=== PATIENT | male | born 1960 | race Caucasian/White ===

== ENCOUNTER 2018-12-15 16:19 | Outpatient (CLI) | payer BC ==
--- NOTE | 2018-12-15 18:35 | RAD ---
LEFT ANKLE THREE VIEWS: 12/15/18 HISTORY: Fall. Left ankle injury. FINDINGS: Comminuted minimally displaced fracture of the distal fibula is present just above the level of the a nkle mortise. Talar dome is intact. Overlying soft tissue swelling. IMPRESSION: Larson class C fracture left lateral malleolus. Please consider immobilization and orthopedic evaluat ion. Findings were called to Dr. Robins at 1636 hours. Code CR POS: [id number]
== END 2018-12-15 16:20 | disposition home or self-care (01) ==
LOC: BICRAD 16:19
PROVIDERS: ATTEND Family Medicine
DX: S99.912A Unspecified injury of left ankle, initial encounter (principal); S82.62XA Displaced fracture of lateral malleolus of left fibula, initial encounter for closed fracture